=== PATIENT | male | born 1955 | race Caucasian/White ===

== ENCOUNTER 2025-03-28 13:56 | Inpatient (IN) | payer BC, MEDICARE ==
[2025-03-28 21:40] VITALS: BMI 42.5
[2025-03-29] MEDS: Acetaminophen 325 MG TAB PO PRN (02:31)
[2025-03-29] MEDS ORDERED: Dextrose 50% Abboject 50 ML SYRINGE SLOW IVP PRN (06:38)
[2025-03-29] MEDS ORDERED: Glucagon 1 MG/ML KIT IM PRN (06:38)
[2025-03-29 07:49] LABS: ALT (SGPT) 22 U/L (Less than 45); AST (SGOT) 24 U/L (11-34); Albumin 2.7 g/dL (3.1-4.5); Alkaline Phosphatase 94 U/L (40-110); Anion Gap 14 mmol/L (10-20); BUN (Urea Nitrogen) 36 mg/dL (8.4-25.7); Bilirubin, Total 0.5 mg/dL (0.3-1.2); Calc. Creatinine Clearance 99 mL/min (70-130); Calcium 8.4 mg/dL (7.8-10.44); Carbon Dioxide 18 mmol/L (23-31); Chloride 103 mmol/L (98-107); Estimated GFR 66; Globulin 3.7 g/dL (2.4-3.5); Glucose 203 mg/dL (80-115); Protein, Total 6.4 g/dL (5.8-8.1); Sodium 130 mmol/L (136-145)
[2025-03-29] MEDS: HYDROcodone/Acetaminophen 10/325 mg Tablet PO PRN (07:57)
[2025-03-29 08:22] LABS: Anisocytosis SLIGHT = 6-15 cells (100X) (0-5/hpf); Band 22 % (5-11); Hemoglobin 6.7 g/dL (14.0-18.0); Hypochromia MODERATE=16-30 cells (100X) (0-5/hpf); Lymphocytes 15 % (21-51); MDiff Complete? YES; Mean Corpuscular HGB CONC 29.3 g/dL (32.0-36.0); Mean Corpuscular Hemoglobin 25.3 pg (27.0-31.0); Mean Corpuscular Volume 86.2 fl (78.0-98.0); Mean Platelet Volume 6.9 fL (7.4-10.4); Monocytes 13 % (0-10); Neutrophil 48 % (42-75); Platelet Adequacy Comment Appears Adequate; Platelet Count 181 10x3/uL (130-400); RBC Distribution Width 15.8 % (11.5-14.5); Red Blood Cell (RBC) Count 2.66 mill/uL (4.70-6.10); White Blood Cell (WBC) Count 4.1 10x3/uL (4.8-10.8)
[2025-03-29] MEDS: glipiZIDE 5 MG TAB PO SCH (09:21)
[2025-03-29] MEDS: Hydrochlorothiazide 25 MG TAB PO SCH (09:21)
[2025-03-29] MEDS: Pantoprazole 40 MG DR.TAB PO SCH (09:21)
[2025-03-29] MEDS: Metoprolol Succinate XL 25 MG ER.TAB PO SCH (09:22)
[2025-03-29] MEDS: Gabapentin 300 MG CAP PO SCH (09:22)
[2025-03-29] MEDS: Amlodipine 5 MG TAB PO SCH (09:22)
[2025-03-29] MEDS: KETOCONAZOLE TOP SCH (09:23)
[2025-03-29] MEDS: Insulin Regular, Human 100 UNIT/ML 10 ML VIAL SC PRN (09:24)
[2025-03-29] MEDS: Semaglutide [Ozempic] 0.25 MG/0.368 ML Pen.Injctr SC SCH (09:24)
[2025-03-29] MEDS: Spironolactone 25 MG TAB PO SCH (09:24)
[2025-03-29 11:42] LABS: Rouleaux Formation SLIGHT = 1-5 cells (100X) (None Seen)
[2025-03-29] MEDS: Lantus 1000 UNITS/10 ML VIAL SC SCH (20:28)
[2025-03-29] MEDS: Sodium Bicarbonate Tab 325 MG TAB PO SCH (20:29)
[2025-03-29] MEDS: Allopurinol 100 MG TAB PO SCH (20:30)
[2025-03-29] MEDS ORDERED: Enoxaparin 40 MG (0.4 mL) SYRINGE SC SCH (21:00)
[2025-03-30 05:26] LABS: ALT (SGPT) 24 U/L (Less than 45); AST (SGOT) 20 U/L (11-34); Albumin 2.8 g/dL (3.1-4.5); Alkaline Phosphatase 104 U/L (40-110); Anion Gap 14 mmol/L (10-20); BUN (Urea Nitrogen) 34 mg/dL (8.4-25.7); Bilirubin, Total 0.6 mg/dL (0.3-1.2); Calc. Creatinine Clearance 102 mL/min (70-130); Calcium 8.7 mg/dL (7.8-10.44); Carbon Dioxide 20 mmol/L (23-31); Chloride 101 mmol/L (98-107); Estimated GFR 68; Globulin 3.9 g/dL (2.4-3.5); Glucose 161 mg/dL (80-115); Potassium 5.2 mmol/L (3.5-5.1); Protein, Total 6.7 g/dL (5.8-8.1); Sodium 130 mmol/L (136-145)
[2025-03-30 05:39] LABS: Band 2 % (5-11); Hematocrit 26.3 % (42.0-52.0); Hemoglobin 7.8 g/dL (14.0-18.0); Hypochromia MODERATE=16-30 cells (100X) (0-5/hpf); Lymphocytes 13 % (21-51); MDiff Complete? YES; Mean Corpuscular HGB CONC 29.8 g/dL (32.0-36.0); Mean Corpuscular Hemoglobin 25.5 pg (27.0-31.0); Mean Corpuscular Volume 85.4 fl (78.0-98.0); Mean Platelet Volume 6.8 fL (7.4-10.4); Microcytosis SLIGHT = 6-15 cells (100X) (0-5/hpf); Monocytes 14 % (0-10); Neutrophil 71 % (42-75); Platelet Count 233 10x3/uL (130-400); RBC Distribution Width 15.3 % (11.5-14.5); Red Blood Cell (RBC) Count 3.07 mill/uL (4.70-6.10); Rouleaux Formation MODERATE= 6-15 cells (100X) (None Seen); White Blood Cell (WBC) Count 6.6 10x3/uL (4.8-10.8)
[2025-03-30] MEDS: HYDROcodone/Acetaminophen 10/325 mg Tablet PO PRN (07:52)
[2025-03-30] MEDS: Ferrous Sulfate 325 MG TAB PO SCH (07:53)
[2025-03-31 05:08] LABS: #Basophils 0.1 thou/uL (0.0-0.2); #Eosinophils 0.1 thou/uL (0.0-0.7); #Monocytes 0.9 thou/uL (0.11-0.59); #Neutrophils 6.1 thou/uL (1.40-6.50); %Eosinophils 0.9 % (0.0-10.0); %Lymphocytes 12.3 % (21.0-51.0); %Monocytes 10.8 % (0.0-10.0); Hematocrit 26.6 % (42.0-52.0); Hemoglobin 8.1 g/dL (14.0-18.0); Mean Corpuscular HGB CONC 30.3 g/dL (32.0-36.0); Mean Corpuscular Hemoglobin 25.7 pg (27.0-31.0); Mean Corpuscular Volume 84.7 fl (78.0-98.0); Mean Platelet Volume 6.6 fL (7.4-10.4); Platelet Count 274 10x3/uL (130-400); RBC Distribution Width 15.7 % (11.5-14.5); Red Blood Cell (RBC) Count 3.15 mill/uL (4.70-6.10); White Blood Cell (WBC) Count 8.1 10x3/uL (4.8-10.8)
[2025-03-31 05:20] LABS: ALT (SGPT) 21 U/L (Less than 45); AST (SGOT) 20 U/L (11-34); Albumin 2.8 g/dL (3.1-4.5); Alkaline Phosphatase 110 U/L (40-110); Anion Gap 16 mmol/L (10-20); BUN (Urea Nitrogen) 31 mg/dL (8.4-25.7); Bilirubin, Total 0.6 mg/dL (0.3-1.2); Calc. Creatinine Clearance 96 mL/min (70-130); Calcium 8.9 mg/dL (7.8-10.44); Carbon Dioxide 19 mmol/L (23-31); Chloride 100 mmol/L (98-107); Estimated GFR 64; Glucose 174 mg/dL (80-115); Potassium 5.2 mmol/L (3.5-5.1); Protein, Total 6.8 g/dL (5.8-8.1); Sodium 130 mmol/L (136-145)
[2025-03-31] MEDS: Sodium Bicarbonate Tab 325 MG TAB PO SCH (08:26)
[2025-03-31] MEDS: Melatonin 3 MG TAB PO PRN (20:18)
[2025-04-01] MEDS: Acetaminophen 325 MG TAB PO SCH (00:03)
[2025-04-01] MEDS: Ascorbic Acid 500 mg Chewable Tablet PO SCH (08:05)
[2025-04-01] MEDS: SEMAGLUTIDE 2 MG/3 ML SC SCH (08:55)
[2025-04-03 07:30] LABS: Anion Gap 15 mmol/L (10-20); BUN (Urea Nitrogen) 28 mg/dL (8.4-25.7); Calc. Creatinine Clearance 102 mL/min (70-130); Calcium 8.8 mg/dL (7.8-10.44); Carbon Dioxide 21 mmol/L (23-31); Chloride 99 mmol/L (98-107); Estimated GFR 68; Glucose 154 mg/dL (80-115); Potassium 4.9 mmol/L (3.5-5.1); Sodium 130 mmol/L (136-145)
[2025-04-03] MEDS ORDERED: Sodium Bicarbonate Tab 325 MG TAB PO SCH (21:00)
[2025-04-03] MEDS: Lidocaine 4% Patch TD SCH (21:23)
[2025-04-03] MEDS: Sodium Bicarbonate Tab 325 MG TAB PO SCH (21:24)
[2025-04-04] MEDS: Transdermal Patch Removal TOP SCH (08:44)
[2025-04-06] MEDS: Cyclobenzaprine 10 MG TAB PO PRN (14:04)
[2025-04-07] MEDS: Loperamide HCl 2 MG CAP PO PRN (01:55)
[2025-04-07 05:21] LABS: #Basophils 0.1 thou/uL (0.0-0.2); #Eosinophils 0.1 thou/uL (0.0-0.7); #Monocytes 0.7 thou/uL (0.11-0.59); #Neutrophils 6.8 thou/uL (1.40-6.50); %Basophils 1.3 % (0.0-1.0); %Eosinophils 0.9 % (0.0-10.0); %Lymphocytes 11.3 % (21.0-51.0); %Monocytes 8.1 % (0.0-10.0); %Neutrophils 78.4 % (42.0-75.0); Hematocrit 25.5 % (42.0-52.0); Hemoglobin 7.7 g/dL (14.0-18.0); Mean Corpuscular HGB CONC 30.4 g/dL (32.0-36.0); Mean Corpuscular Hemoglobin 25.4 pg (27.0-31.0); Mean Corpuscular Volume 83.6 fl (78.0-98.0); Mean Platelet Volume 5.5 fL (7.4-10.4); Platelet Count 303 10x3/uL (130-400); RBC Distribution Width 16.4 % (11.5-14.5); Red Blood Cell (RBC) Count 3.05 mill/uL (4.70-6.10); White Blood Cell (WBC) Count 8.7 10x3/uL (4.8-10.8)
[2025-04-07 05:40] LABS: Anion Gap 15 mmol/L (10-20); BUN (Urea Nitrogen) 32 mg/dL (8.4-25.7); Calc. Creatinine Clearance 104 mL/min (70-130); Calcium 8.6 mg/dL (7.8-10.44); Carbon Dioxide 21 mmol/L (23-31); Chloride 100 mmol/L (98-107); Estimated GFR 70; Glucose 114 mg/dL (80-115); Potassium 5.1 mmol/L (3.5-5.1); Sodium 131 mmol/L (136-145)
[2025-04-09] MEDS: RESTLESS LEG SL PRN (20:58)
[2025-04-11 05:25] LABS: #Basophils 0.1 thou/uL (0.0-0.2); #Eosinophils 0.1 thou/uL (0.0-0.7); #Monocytes 0.6 thou/uL (0.11-0.59); #Neutrophils 4.9 thou/uL (1.40-6.50); %Basophils 0.9 % (0.0-1.0); %Eosinophils 1.6 % (0.0-10.0); %Lymphocytes 15.4 % (21.0-51.0); %Monocytes 9.1 % (0.0-10.0); Anisocytosis SLIGHT = 6-15 cells (100X) (0-5/hpf); Hematocrit 28.3 % (42.0-52.0); Hemoglobin 8.2 g/dL (14.0-18.0); Hypochromia SLIGHT = 6-15 cells (100X) (0-5/hpf); MDiff Complete? YES; Mean Corpuscular HGB CONC 28.8 g/dL (32.0-36.0); Mean Corpuscular Hemoglobin 24.3 pg (27.0-31.0); Mean Corpuscular Volume 84.4 fl (78.0-98.0); Platelet Count 318 10x3/uL (130-400); RBC Distribution Width 16.6 % (11.5-14.5); Red Blood Cell (RBC) Count 3.35 mill/uL (4.70-6.10); White Blood Cell (WBC) Count 6.7 10x3/uL (4.8-10.8)
[2025-04-11 05:27] LABS: Anion Gap 14 mmol/L (10-20); BUN (Urea Nitrogen) 33 mg/dL (8.4-25.7); Calc. Creatinine Clearance 92 mL/min (70-130); Carbon Dioxide 21 mmol/L (23-31); Chloride 103 mmol/L (98-107); Estimated GFR 66; Glucose 88 mg/dL (80-115); Potassium 4.9 mmol/L (3.5-5.1); Sodium 133 mmol/L (136-145)
[2025-04-12] MEDS: Ondansetron ODT 4 MG TAB PO PRN (13:51)
[2025-04-13] MEDS: Diphenoxylate HCl/Atropine Tablet PO PRN (12:38)
[2025-04-14] MEDS: Sulfameth/Trimethoprim DS 800-160mg TAB PO SCH (09:41)
[2025-04-14 10:42] LABS: Campy jejuni + coli by PCR Negative (Negative); STEC Shiga Toxin 1+2 Negative (Negative); Salmonella spp. by PCR Negative (Negative); Shigella spp + EIEC by PCR Negative (Negative)
[2025-04-14] MEDS: Saccharomyces boulardii 250 MG CAP PO SCH (21:07)
[2025-04-15] MEDS: [UNRECOGNIZED DRUG - OTHER] PO PRN (05:50)
[2025-04-18] MEDS: Polyethylene Glycol 3350 17 GM Packet PO PRN (20:42)
[2025-04-21] MEDS: Lantus 1000 UNITS/10 ML VIAL SC SCH (20:39)
[2025-04-22 05:42] LABS: #Basophils 0.1 thou/uL (0.0-0.2); #Eosinophils 0.1 thou/uL (0.0-0.7); #Lymphocytes 1.3 thou/uL (1.20-3.40); #Monocytes 0.7 thou/uL (0.11-0.59); #Neutrophils 3.9 thou/uL (1.40-6.50); %Basophils 0.8 % (0.0-1.0); %Eosinophils 2.2 % (0.0-10.0); %Lymphocytes 21.7 % (21.0-51.0); %Neutrophils 63.2 % (42.0-75.0); Hematocrit 28.6 % (42.0-52.0); Hemoglobin 8.7 g/dL (14.0-18.0); Mean Corpuscular HGB CONC 30.5 g/dL (32.0-36.0); Mean Platelet Volume 5.9 fL (7.4-10.4); Platelet Count 232 10x3/uL (130-400); RBC Distribution Width 16.8 % (11.5-14.5); Red Blood Cell (RBC) Count 3.49 mill/uL (4.70-6.10); White Blood Cell (WBC) Count 6.1 10x3/uL (4.8-10.8)
[2025-04-22 05:54] LABS: ALT (SGPT) 18 U/L (Less than 45); AST (SGOT) 25 U/L (11-34); Albumin 3.2 g/dL (3.1-4.5); Alkaline Phosphatase 122 U/L (40-110); Anion Gap 15 mmol/L (10-20); BUN (Urea Nitrogen) 48 mg/dL (8.4-25.7); Bilirubin, Total 0.3 mg/dL (0.3-1.2); Calc. Creatinine Clearance 49 mL/min (70-130); Calcium 9.4 mg/dL (7.8-10.44); Carbon Dioxide 19 mmol/L (23-31); Chloride 99 mmol/L (98-107); Estimated GFR 31; Globulin 3.9 g/dL (2.4-3.5); Glucose 112 mg/dL (80-115); Protein, Total 7.1 g/dL (5.8-8.1); Sodium 126 mmol/L (136-145)
[2025-04-22 05:57] LABS: Critical Call Chemistry NUR.JSC2 @ 0557; Potassium 6.9 mmol/L (3.5-5.1)
[2025-04-22] MEDS: Sodium Polystyrene Sulfonate 15 GM (60 mL) BOT PO SCH ×2 (07:16→12:03)
[2025-04-22] MEDS: Metoprolol Succinate XL 50 MG ER.TAB PO SCH (08:26)
[2025-04-22] MEDS: Sodium Chloride 0.9% 1,000 ML IV SCH (09:11)
[2025-04-22 16:13] LABS: Critical Call Chemistry MAD.MIP@1612; Potassium 6.3 mmol/L (3.5-5.1)
[2025-04-23 05:37] LABS: Anion Gap 14 mmol/L (10-20); BUN (Urea Nitrogen) 41 mg/dL (8.4-25.7); Calc. Creatinine Clearance 63 mL/min (70-130); Carbon Dioxide 20 mmol/L (23-31); Chloride 102 mmol/L (98-107); Estimated GFR 45; Glucose 93 mg/dL (80-115); Potassium 5.1 mmol/L (3.5-5.1); Sodium 131 mmol/L (136-145)
[2025-04-23 15:15] VITALS: BMI 37.0
[2025-04-25 05:20] LABS: ALT (SGPT) 30 U/L (Less than 45); AST (SGOT) 33 U/L (11-34); Alkaline Phosphatase 98 U/L (40-110); Anion Gap 15 mmol/L (10-20); BUN (Urea Nitrogen) 45 mg/dL (8.4-25.7); Bilirubin, Total 0.3 mg/dL (0.3-1.2); Calc. Creatinine Clearance 63 mL/min (70-130); Calcium 8.8 mg/dL (7.8-10.44); Carbon Dioxide 18 mmol/L (23-31); Chloride 105 mmol/L (98-107); Estimated GFR 45; Globulin 3.5 g/dL (2.4-3.5); Glucose 168 mg/dL (80-115); Potassium 5.5 mmol/L (3.5-5.1); Protein, Total 6.5 g/dL (5.8-8.1); Sodium 132 mmol/L (136-145)
[2025-04-25] MEDS: LOKELMA 10 GM PACKET PO SCH (21:56)
[2025-04-26] MEDS: LOKELMA 10 GM PACKET ONE (22:34)
[2025-04-28 05:24] LABS: #Basophils 0.1 thou/uL (0.0-0.2); #Eosinophils 0.1 thou/uL (0.0-0.7); #Lymphocytes 1.2 thou/uL (1.20-3.40); #Monocytes 0.6 thou/uL (0.11-0.59); #Neutrophils 4.4 thou/uL (1.40-6.50); %Basophils 1.7 % (0.0-1.0); %Eosinophils 2.3 % (0.0-10.0); %Lymphocytes 18.1 % (21.0-51.0); %Monocytes 9.5 % (0.0-10.0); %Neutrophils 68.5 % (42.0-75.0); Anisocytosis SLIGHT = 6-15 cells (100X) (0-5/hpf); Hematocrit 30.5 % (42.0-52.0); Hemoglobin 8.7 g/dL (14.0-18.0); Hypochromia SLIGHT = 6-15 cells (100X) (0-5/hpf); MDiff Complete? YES; Mean Corpuscular HGB CONC 28.6 g/dL (32.0-36.0); Mean Corpuscular Volume 83.7 fl (78.0-98.0); Platelet Count 145 10x3/uL (130-400); Poikilocytosis SLIGHT = 6-15 cells (100X) (0-5/hpf); RBC Distribution Width 17.5 % (11.5-14.5); Red Blood Cell (RBC) Count 3.64 mill/uL (4.70-6.10); White Blood Cell (WBC) Count 6.4 10x3/uL (4.8-10.8)
[2025-04-28 05:28] LABS: ALT (SGPT) 72 U/L (Less than 45); AST (SGOT) 70 U/L (11-34); Albumin 3.2 g/dL (3.1-4.5); Alkaline Phosphatase 115 U/L (40-110); Anion Gap 14 mmol/L (10-20); BUN (Urea Nitrogen) 48 mg/dL (8.4-25.7); Bilirubin, Total 0.5 mg/dL (0.3-1.2); Calc. Creatinine Clearance 55 mL/min (70-130); Carbon Dioxide 22 mmol/L (23-31); Chloride 102 mmol/L (98-107); Estimated GFR 38; Globulin 3.9 g/dL (2.4-3.5); Glucose 134 mg/dL (80-115); Potassium 4.4 mmol/L (3.5-5.1); Protein, Total 7.1 g/dL (5.8-8.1); Sodium 134 mmol/L (136-145)
[2025-04-28] MEDS: LOKELMA 10 GM PACKET ONE (10:32)
[2025-04-28 14:14] LABS: HIV (1/2) Antibody/Antigen NONREACTIVE (NonReactive); HIV 1/2 INDEX 0.05 S/CO (<1.00)
[2025-04-30] MEDS ORDERED: Mag-Al 1200 mg/1200 mg/30 ML UDCUP PO PRN (21:44)
[2025-04-30] MEDS: Simethicone Chewable 80 MG TAB PO PRN (21:58)
[2025-05-01 05:32] LABS: ALT (SGPT) 45 U/L (Less than 45); AST (SGOT) 36 U/L (11-34); Albumin 2.9 g/dL (3.1-4.5); Alkaline Phosphatase 89 U/L (40-110); Anion Gap 14 mmol/L (10-20); BUN (Urea Nitrogen) 44 mg/dL (8.4-25.7); Bilirubin, Total 0.4 mg/dL (0.3-1.2); Calc. Creatinine Clearance 90 mL/min (70-130); Calcium 8.7 mg/dL (7.8-10.44); Carbon Dioxide 24 mmol/L (23-31); Chloride 102 mmol/L (98-107); Estimated GFR 69; Globulin 3.5 g/dL (2.4-3.5); Glucose 100 mg/dL (80-115); Potassium 3.9 mmol/L (3.5-5.1); Protein, Total 6.4 g/dL (5.8-8.1); Sodium 136 mmol/L (136-145)
[2025-05-02 07:02] VITALS: BP 130/72; TEMP 98.3
== END 2025-05-02 14:30 | disposition home or self-care (01) | DRG 948 ==
LOC: MADMS 14:17
PROVIDERS: ADMIT Family Medicine; ATTEND Family Medicine
PROC: 30233N1 Transfusion of Nonautologous Red Blood Cells into Peripheral Vein, Percutaneous Approach (ICD-10-PCS; principal; 2025-03-29)
DX: R53.81 Other malaise (principal); S22.32XA Fracture of one rib, left side, initial encounter for closed fracture; S82.142A Displaced bicondylar fracture of left tibia, initial encounter for closed fracture; E87.20 Acidosis, unspecified; K86.2 Cyst of pancreas; E87.1 Hypo-osmolality and hyponatremia; D50.9 Iron deficiency anemia, unspecified; G47.33 Obstructive sleep apnea (adult) (pediatric); I48.0 Paroxysmal atrial fibrillation; M10.9 Gout, unspecified; N18.30 Chronic kidney disease, stage 3 unspecified; E11.22 Type 2 diabetes mellitus with diabetic chronic kidney disease; I12.9 Hypertensive chronic kidney disease with stage 1 through stage 4 chronic kidney disease, or unspecified chronic kidney disease; Z79.899 Other long term (current) drug therapy; Z66 Do not resuscitate; E87.5 Hyperkalemia; Z46.89 Encounter for fitting and adjustment of other specified devices; Z79.4 Long term (current) use of insulin
CPT/HCPCS: 36415; 36416; 36430; 80048; 80053; 83630; 85025; 86850; 86900; 86901; 87070; 87077; 87186; 87205; 87324; 87389; 87449; 87505; 97602; J1815; J7030; P9016; Q0162